=== PATIENT | male | born 1990 | race Hispanic/Latino ===

== ENCOUNTER 2024-01-18 18:01 | Emergency (ER) | payer BC ==
[~2024-01-18] VITALS: Ht 170.2 cm; Wt 90.7 kg
[~2024-01-18 18:01] MED LIST: CELE-146 PO; DOXY100T2 PO
[2024-01-18 18:18] LABS: APPEARANCE,URINE CLEAR (CLEAR); BILIRUBIN,URINE NEGATIVE (NEGATIVE); COLOR,URINE LIGHT-YELLOW (YELLOW); GLUCOSE, URINE (UA) NEGATIVE (NEGATIVE); KETONES,URINE 40 mg/dL (NEGATIVE); LEUKOCYTE ESTERASE ,URINE NEGATIVE Leu/uL (NEGATIVE); NITRATE,URINE NEGATIVE (NEGATIVE); OCCULT BLOOD,URINE NEGATIVE (NEGATIVE); PH,URINE 7.5 (5.0-8.0); PROTEIN,URINE NEGATIVE (NEGATIVE); UROBILINOGEN,URINE 0.2 mg/dL (0.2-1.0)
[2024-01-18] MEDS: HALOPERIDOL INJ 5 MG/ML VIAL IV ONE (18:23)
[2024-01-18] MEDS: 0.9%NACL 1000ML 1,000 ML IV ONE (18:23)
[2024-01-18 18:24] LABS: BASOPHILS # (AUTO) 0.06 K/uL (0.00-0.20); BASOPHILS % (AUTO) 0.4 % (0.0-5.0); EOSINOPHILS # (AUTO) 0.03 K/uL (0.00-0.70); EOSINOPHILS % (AUTO) 0.2 % (0.0-8.0); HEMATOCRIT 47.9 % (42-54); IMMATURE GRANULOCYTE ABSOLUTE 0.03 K/uL (0-1); LYMPHOCYTES # (AUTO) 1.3 K/uL (1.0-4.8); LYMPHOCYTES % (AUTO) 9.4 % (21.0-51.0); MEAN CORPUSCULAR HEMOGLOBIN 31.1 pg (27.0-33.0); MEAN CORPUSCULAR HGB CONC 35.5 g/dL (32.0-36.0); MEAN CORPUSCULAR VOLUME 87.7 fL (79-99); MONOCYTES # (AUTO) 0.6 K/uL (0.1-1.0); MONOCYTES % (AUTO) 4.3 % (3.0-13.0); NEUTROPHILS % (AUTO) 85.5 % (40.0-77.0); PLATELET COUNT (AUTO) 259 K/uL (130-400); RED BLOOD CELL COUNT(AUTO) 5.46 MIL/uL (4.50-6.20); RED CELL DISTRIBUTION WIDTH 11.8 % (11.0-15.5); WHITE BLOOD COUNT (AUTO) 14.1 K/uL (4.8-10.8)
[2024-01-18] MEDS: ketOROlac 15MG/ML VIAL (15MG/ML) IV ONE (18:24)
[2024-01-18 18:26] LABS: ADD UA MICROSCOPIC NO; AMPHET/METH SCREEN,URINE NEGATIVE (NEGATIVE); BARBITURATE SCREEN, URINE NEGATIVE (NEGATIVE); BENZODIAZEPINES SCREEN,URINE NEGATIVE (NEGATIVE); CANNABINOID SCREEN,URINE POSITIVE (NEGATIVE); COCAINE SCREEN,URINE NEGATIVE (NEGATIVE); OPIATE SCREEN,URINE NEGATIVE (NEGATIVE); PHENCYCLIDINE SCREEN,URINE NEGATIVE (NEGATIVE)
[2024-01-18 18:32] LABS: POTASSIUM 3.7 mmol/L (3.5-5.1)
[2024-01-18 18:37] LABS: ALBUMIN 4.3 g/dL (3.5-5.0); BILIRUBIN,DIRECT 0.3 mg/dL (0.0-0.3); BILIRUBIN,TOTAL 2.5 mg/dL (0.2-1.0); TOTAL PROTEIN, SERUM 7.9 g/dL (6.0-8.3)
[2024-01-18] MEDS: hydroMORPHone 1 MG INJ IVP ONE (18:41)
[2024-01-18] MEDS ORDERED: ONDA-243 PO (18:52)
[2024-01-18 19:46] VITALS: BP 124/78; PULSE 68; RESP 20; TEMP 98.8; O2SAT 100
== END 2024-01-18 19:52 | disposition home or self-care (01) ==
LOC: EDH 18:01
DX: R11.10 Vomiting, unspecified (principal); F12.920 Cannabis use, unspecified with intoxication, uncomplicated; E86.0 Dehydration
CPT/HCPCS: 99284; 96374; 96375; 96361; 80076; 80048; 80305; 83690; 85025; 36415; 81003; J1171; J7030; J1630; J1885

== ENCOUNTER 2024-02-01 17:46 | Emergency (ER) | payer BC ==
[~2024-02-01] VITALS: Ht 170.2 cm; Wt 90.7 kg
[~2024-02-01 17:46] MED LIST changes: +ONDA-243 PO
--- NOTE | 2024-02-01 17:56 | ERN ---
ED Note History of Present Illness Stated Complaint: RT FOOT INJURY Chief Complaint: FOOT INJURY/PAIN Time Seen by MD: 17:48 Dictation: PATIENT IS A 33-YEAR-OLD HERE WITH HIS MOTHER WITH COMPLAINTS OF HAVING ERYTHEMA TENDERNESS TO THE LATERAL ASPECT OF THE DORSAL RIGHT FOOT ONSET 2-3 DAYS PRIOR TO ARRIVAL. HE WAS STATES HE WAS WORKING AROUND THE HOUSE WHEN A BOARD FELL OFF THAT HAD A NAIL IN IT AND IT PUNCTURED THE TOP OF THE FOOT. LAST TETANUS SHOT IS UNKNOWN HE HAS HAD NO FEVER NO CHILLS NO PRIMARY CARE DOCTOR Allergies: Coded Allergies: No Known Allergies (Unverified Allergy, Unknown, 12/24/23) Home Meds Active Scripts Ondansetron (Ondansetron Odt) 4 Mg Tab.rapdis, 1 TAB PO Q6HPRN PRN for nausea/vomiting for 4 Days, #16 TAB 0 Refills Prov:MAYNOR PEREZ DO 01/18/24 Reported Medications Doxycycline Hyclate (Doxycycline Hyclate) 100 Mg Tablet, 100 MG PO BID, TAB 12/25/23 Celecoxib (Celecoxib) 100 Mg Capsule, 100 MG PO BID, CAP 12/25/23 Past Medical History Past Medical History: No Pertinent History, Anxiety Surgical History: None PSYCH History: no pertinent psych hx RN Note Reviewed/Agreed w/PFSH: Yes Review of System Dictation CONSTITUTIONAL: NEGATIVE EXCEPT FOR HPI HEAD/FACE: NEGATIVE EXCEPT FOR HPI EENT: NEGATIVE EXCEPT FOR HPI RESPIRATORY: NEGATIVE EXCEPT FOR HPI GASTROINTESTINAL/ABDOMINAL: NEGATIVE EXCEPT FOR HPI GENITOURINARY: NEGATIVE EXCEPT FOR HPI MUSCULOSKELETAL: NEGATIVE EXCEPT FOR HPI INTEGUMENTARY: NEGATIVE EXCEPT FOR HPI PUNCTURE WOUND WITH ERYTHEMA TO DORSAL RIGHT FOOT NEUROLOGICAL/PSYCH: NEGATIVE EXCEPT FOR HPI HEMATOLOGIC/LYMPHATIC: NEGATIVE EXCEPT FOR HPI ALL SYSTEMS NEGATIVE, EXCEPT NOTED ABOVE. 13 POINT REVIEW OF SYSTEMS ASSESSED AND ALL NEGATIVE EXCEPT FOR ABOVE. Initial Vital Sign VS Vital Signs Date Time Temp Pulse Resp B/P (MAP) Pulse Ox O2 Delivery O2 Flow Rate FiO2 02/01/24 17:47 97.5 66 20 113/67 99 02/01/24 17:55 Room Air* 0 21 Physical Exam Dictation VITAL SIGNS REVIEWED GENERAL APPEARANCE: ALERT, ORIENTED X 3, MILD ACUTE DISTRESS, WELL DEVELOPED, NOURISHED. HEAD AND FACE: NON-TRAUMATIC. EYES: PERRL, PINK CONJUNCTIVAS, EYELID NO TRAUMA, ANTERIOR CHAMBER WITH ARCUS SENILIS. EARS: PINNAS INTACT AND NO SIGNS OF TRAUMA OR ERYTHEMA EAR CANALS CLEAR AND NO DISCHARGE TM NO ERYTHEMA NOSE: NO DISCHARGE, NO BLEEDING. OROPHARYNX: MOUTH NORMAL, TONGUE PINK, PHARYNX CLEAR,NO ERYTHEMA, TONSILS NO EXUDATES, NO ABSCESSES NOTED, MUCOUS MEMBRANE MOIST NECK: SUPPLE, NON-TENDER, NO THYROMEGALY, NO MASSES, NO JVD, NO BRUITS BREAST:DEFERRED CHEST:NO TENDERNESS, NO CREPITUS, NO PARADOXICAL MOVEMENT, NO RETRACTIONS LUNGS:CLEAR, WELL-VENTILATED, SYMMETRIC, NO RALES, NO WHEEZING, NO RHONCHI, NO STRIDOR, GOOD BREATH SOUNDS BILATERALLY HEART: REGULAR RATE, REGULAR RHYTHM, NO MURMUR, NO GALLOPS VASCULAR: NO PERIPHERAL EDEMA, ABDOMEN: SOFT, POSITIVE BOWEL SOUNDS, NONDISTENDED, NO GUARDING, NONTENDER, NO REBOUND, NO MASSES NO HEPATOMEGALY, NO SPLENOMEGALY, NO OLVERA'S SIGN, NO HERNIAS. RECTAL: DEFERRED GENITAL: DEFERRED NEUROLOGICAL: NORMAL SPEECH, MOTOR FUNCTION INTACT, SENSORY FUNCTION INTACT MUSCULOSKELETAL: NECK NONTENDER, FULL RANGE OF MOTION, BACK NONTENDER, FULL RANGE OF MOTION, EXTREMITIES: NONTENDER, FULL RANGE OF MOTION SKIN: COLOR PINK, DRY, GRANULATED PUNCTURE WOUND TO DORSUM OF RIGHT FOOT PROXIMAL 4TH TOE. ERYTHEMA AND MILD SWELLING NOTED LYMPHATIC: DEFERRED Results (Laboratory/Radiology) Laboratory/Radiology Laboratory Tests Test 02/01/24 18:04 White Blood Count 11.3 K/uL (4.8-10.8) H Red Blood Count 5.39 MIL/uL (4.50-6.20) Hemoglobin 16.5 g/dL (14.0-18.0) Hematocrit 47.4 % (42-54) Mean Corpuscular Volume 87.9 fL (79-99) Mean Corpuscular Hemoglobin 30.6 pg (27.0-33.0) Mean Corpuscular Hemoglobin Concent 34.8 g/dL (32.0-36.0) Red Cell Distribution Width 12.0 % (11.0-15.5) Platelet Count 294 K/uL (130-400) Mean Platelet Volume 10.2 fL (7.5-10.5) Immature Granulocyte % (Auto) 0.3 % (0-1) Neutrophils (%) (Auto) 69.1 % (40.0-77.0) Lymphocytes (%) (Auto) 19.4 % (21.0-51.0) L Monocytes (%) (Auto) 7.5 % (3.0-13.0) Eosinophils (%) (Auto) 3.2 % (0.0-8.0) Basophils (%) (Auto) 0.5 % (0.0-5.0) Neutrophils # (Auto) 7.8 K/uL (1.8-7.7) H Lymphocytes # (Auto) 2.2 K/uL (1.0-4.8) Monocytes # (Auto) 0.8 K/uL (0.1-1.0) Eosinophils # (Auto) 0.36 K/uL (0.00-0.70) Basophils # (Auto) 0.06 K/uL (0.00-0.20) Absolute Immature Granulocyte (auto 0.03 K/uL (0-1) Nucleated Red Blood Cells 0.0 % (0.0-0.19) Sodium Level 136 mmol/L (136-145) Potassium Level 2.9 mmol/L (3.5-5.1) *L Chloride Level 100 mmol/L (101-111) L Carbon Dioxide Level 28 mmol/L (21-32) Blood Urea Nitrogen 13 mg/dL (7-18) Creatinine 1.1 mg/dL (0.5-1.3) Glomerular Filtration Rate Calc 91 mL/min (>90) Random Glucose 93 mg/dL (70-105) Total Calcium 8.8 mg/dL (8.5-10.1) 1807, NO RADIOPAQUE FOREIGN BODY NOTED TO RIGHT FOOT X-RAY Labs Reviewed?: Yes ED Course ED Course Orders Procedure Category Date Status Time Cbc With Differential LAB 02/01/24 Complete 17:52 Basic Metabolic Panel LAB 02/01/24 Complete 17:52 Foot Comp 3+Vws Rt RAD 02/01/24 Resulted 17:52 Tetanus,Diphtheria PHA 02/01/24 Complete Tox [Adult] (Diphther 18:00 Clindamycin 150mg Cap PHA 02/01/24 Complete (Cleocin 150mg Cap 18:00 Ibuprofen 800 Mg Tab PHA 02/01/24 Complete (Motrin) 18:00 Current Medications Medications (Trade) Dose Ordered Sig/Regino Route PRN Reason Start Time Stop Time Status Last Admin Dose Admin Clindamycin HCl (Cleocin 150mg Cap) 600 mg ONCE ONCE PO 11/1/24 18:00 02/01/24 18:01 DC 02/01/24 18:03 Ibuprofen (moTRIN) 800 mg ONCE ONCE PO 02/01/24 18:00 02/01/24 18:01 DC 02/01/24 18:03 Tetanus/ Diphtheria Toxoids Adsorbed (DiphthERIA-teTANUS TOXOID [ADULT]/ DECAVAC) 0.5 ml ONCE ONCE IM 02/01/24 18:00 02/01/24 18:01 DC 02/01/24 18:06 Vital Signs Date Time Temp Pulse Resp B/P (MAP) Pulse Ox O2 Delivery O2 Flow Rate FiO2 02/01/24 17:55 98.1 64 18 112/60 99 Room Air* 0 21 02/01/24 17:47 97.5 66 20 113/67 99 1900, PATIENT HEMODYNAMICALLY STABLE RECEIVED CLINDAMYCIN LOADING DOSE, TETANUS WAS UPDATED, HYPOKALEMIA WAS ADDRESSED WITH REPLACEMENT. PATIENT MADE AWARE THERE IS NO RETAINED FOREIGN BODY IN THE FOOT FOLLOW UP WITH ONE OF THE DOCTORS ON THE LIST PROVIDED IN 1-2 DAYS. Medical Decision Making MDM MEDICAL DISCHARGE MAKING BASED ON X-RAY OF RIGHT FOOT, TETANUS UPDATE AND LOADING WITH CLINDAMYCIN. ADDITIONALLY POTASSIUM 2.9 AND WAS REPLACED DISCHARGED HOME ON CLINDAMYCIN AND IBUPROFEN TOLD TO FOLLOW UP WITH ONE OF THE DOCTORS ON THE LIST PROVIDED HIM IN 1-2 DAYS. DX & DISP Disposition: Discharge Departure Impression: Primary Impression: Cellulitis of right foot without toes Additional Impressions: Puncture wound of right foot, Hypokalemia Condition: Stable Scripts Ibuprofen (Ibuprofen 800 mg Tab) 800 Mg Tab 800 MG PO Q8H PRN for fever or pain, #30 TAB 0 Refills Prov: MARIE MAZARIEGOS NP 02/01/24 Clindamycin HCl (Clindamycin HCl) 300 Mg Capsule 1 CAP PO QID for 10 Days, #40 CAP 0 Refills Prov: MARIE MAZARIEGOS REGRINDER 02/01/24 Additional Instructions: FOLLOW-UP WITH PRIMARY CARE PROVIDER IN 1 TO 2 DAYS. TAKE MEDICATIONS DIRECTED HERE IN THE EMERGENCY ROOM. OKAY TO CONTINUE HOME MEDICATIONS UNLESS OTHERWISE DISCUSSED DURING YOUR VISIT IN THE EMERGENCY ROOM TODAY. RETURN TO YOUR NEAREST EMERGENCY ROOM IF SYMPTOMS WORSEN OR IF THERE IS NO IMPROVEMENT. CALL 911 IF YOU NEED IMMEDIATE ASSISTANCE. TAKE TYLENOL OR MOTRIN OVE [id number] NEEDED AND IF NO CONTRAINDICATIONS ARE PRESENT. INCREASE ORAL HYDRATION. A WOUND CULTURE OR URINE CULTURE WAS ORDERED HERE IN THE EMERGENCY ROOM DEPARTMENT PLEASE FOLLOW-UP WITH PRIMARY CARE PROVIDER AND ADVISE THEM TO GET REPEAT PORTS FROM OUR FACILITY. IF YOU HAD ANY THIEN WRAP/SPLINTS THAT WERE APPLIED HERE, PLEASE DO NOT REMOVE THEM UNTIL YOU SEE YOUR PRIMARY CARE OR SPECIALTY. TAKE ANTIBIOTICS DIRECTED UNTIL GONE. TAKE IBUPROFEN NEEDED FOR PAIN. FOLLOW UP WITH ONE OF THE DOCTORS ON THE LIST PROVIDED YOU IN THE NEXT 1-2 DAYS FOR FOLLOW UP AND MANAGE Referrals: CHAVA POE MD (PCP) Time of Disposition: 19:12 I have reviewed the case, and I agree with, Diagnosis and Plan MARIE MAZARIEGOS NP Feb 01, 2024 17:56
[2024-02-01] MEDS: ibuPROFEN 800 MG TAB PO ONE (18:03)
[2024-02-01] MEDS: CLINDAMYCIN 150 MG CAP PO ONE (18:03)
[2024-02-01] MEDS: teTANUS/diphthERIA TOXOID [ADULT] 0.5 ML VIAL IM ONE (18:06)
[2024-02-01 18:15] LABS: BASOPHILS # (AUTO) 0.06 K/uL (0.00-0.20); BASOPHILS % (AUTO) 0.5 % (0.0-5.0); EOSINOPHILS # (AUTO) 0.36 K/uL (0.00-0.70); EOSINOPHILS % (AUTO) 3.2 % (0.0-8.0); HEMATOCRIT 47.4 % (42-54); IMMATURE GRANULOCYTE ABSOLUTE 0.03 K/uL (0-1); LYMPHOCYTES # (AUTO) 2.2 K/uL (1.0-4.8); LYMPHOCYTES % (AUTO) 19.4 % (21.0-51.0); MEAN CORPUSCULAR HEMOGLOBIN 30.6 pg (27.0-33.0); MEAN CORPUSCULAR HGB CONC 34.8 g/dL (32.0-36.0); MEAN CORPUSCULAR VOLUME 87.9 fL (79-99); MONOCYTES # (AUTO) 0.8 K/uL (0.1-1.0); MONOCYTES % (AUTO) 7.5 % (3.0-13.0); NEUTROPHILS # (AUTO) 7.8 K/uL (1.8-7.7); NEUTROPHILS % (AUTO) 69.1 % (40.0-77.0); PLATELET COUNT (AUTO) 294 K/uL (130-400); RED BLOOD CELL COUNT(AUTO) 5.39 MIL/uL (4.50-6.20); WHITE BLOOD COUNT (AUTO) 11.3 K/uL (4.8-10.8)
--- NOTE | 2024-02-01 18:19 | HMCIMG ---
RIGHT FOOT RADIOGRAPHS - 3 VIEWS INDICATION: Puncture wound COMPARISON: None FINDINGS: AP, lateral, and oblique views. No acute fracture or subluxation identified. Midfoot alignment is well maintained. No radiopaque foreign body noted. IMPRESSION: No evidence for fracture or foreign body.
[2024-02-01 18:26] LABS: CREATININE 1.1 mg/dL (0.5-1.3)
[2024-02-01 18:27] LABS: POTASSIUM 2.9 mmol/L (3.5-5.1)
[2024-02-01] MEDS ORDERED: CLIN-141 PO (19:13)
[2024-02-01] MEDS ORDERED: IBUP-2077 PO (19:13)
--- NOTE | 2024-02-01 19:17 | NUR ---
CALLED PHARMACY FOR POTASSIUM DOSE.
[2024-02-01 19:32] VITALS: BP 132/74; PULSE 68; RESP 18; TEMP 98.2; O2SAT 98
[2024-02-01] MEDS: PoTASSium BIcarbonate/CIT AC 25 MEQ TABLET.EFF PO SCH (19:34)
== END 2024-02-01 19:40 | disposition home or self-care (01) ==
LOC: EDH 17:46
DX: S91.331A Puncture wound without foreign body, right foot, initial encounter (principal); L03.115 Cellulitis of right lower limb; E87.6 Hypokalemia; Z79.899 Other long term (current) drug therapy; W20.8XXA Other cause of strike by thrown, projected or falling object, initial encounter; Y93.89 Activity, other specified; Y92.098 Other place in other non-institutional residence as the place of occurrence of the external cause; Y99.8 Other external cause status
CPT/HCPCS: 36415; 73630; 80048; 85025; 90471; 90714